=== PATIENT | female | born 1965 | race Caucasian/White ===

== ENCOUNTER 2021-03-01 14:30 | Outpatient (CLI) | payer OTHER ==
--- NOTE | 2021-03-01 14:14 | XRAY Report ---
PROCEDURE: Chest 2 View X-Ray INDICATIONS: WALKING PNEUMONIA TECHNIQUE: 2 view(s) of the chest. COMPARISON: None. FINDINGS: Surgical changes and devices: None. Lungs and pleura: No pleural effusions or pneumothorax. Prominent pulmonary markings bilaterally. Th ere is a lower lobe predilection. No consolidation demonstrated. Mediastinum: Mediastinal contours are normal. Heart size is within normal limits. Bones and chest wall: No suspicious bony abnormalities. Soft tissues appear unremarkable. IMPRESSION: Prominent hazy pulmonary markings bilaterally. This could be due to infectious/inflammatory etiology or fluid overload/CHF. Reviewed by: Shemar Hunter MD on 03/01/2021 2:12 PM PST Approved by: Shemar Hunter MD on 03/01/2021 2:12 PM PST Station ID: [id number]
== END 2021-03-01 23:59 | disposition home or self-care (01) ==
LOC: DI.N 14:30
PROVIDERS: ATTEND Nurse Practitioner
DX: J18.9 Pneumonia, unspecified organism (principal); Z20.822 Contact with and (suspected) exposure to COVID-19